=== PATIENT | male | born 1965 ===

== ENCOUNTER 2023-09-14 14:57 | Outpatient (AMB) | payer OTHER, SELFPAY ==
--- NOTE | 2023-09-14 15:03 | MHC.OFFVIS ---
Intake Vital Signs 09/14/23 15:04 Height 5 ft 9 in Weight 168 lb BMI 24.8 BP 120/60 Blood Pressure Location Rt brachial Position Sitting Pulse 74 Pulse Source Pulse Oximeter Pulse Oximetry (%) 98 Oxygen Delivery Method Room Air Intake Visit Reasons: Asthma Transportation Consultant Required: No Allergies No Known Allergies Allergy (Verified 09/14/23 15:07) HPI HPI Comments History of Present Illness Details The patient is here for pulmonary evaluation. The patient is a 50-year-old gentleman with a known history of asthma presents with worsening shortness breath and cough. The patient started developing some increased shortness of breath, [id number] severity. Previously he had been on Flovent but his Flovent was not available he no longer. He had been using his rescue inhaler about couple times a week. Because of the shortness of breath to follow-up with cardiology and he underwent a stress test and apparently was normal. Therefore will set up pulmonary. Patient has not had PFTs or chest x-ray. Explained to him that the recently has not been able to get the Flovent is because is off the market at this time. The patient does have evidence of symptoms least more than 2 times a week suggesting that is moderate persistent. The patient would benefit from a maintenance inhaler. Symbicort be a better combination inhaler for him. In addition to that significant allergies the patient had been seen by Allergy in the past. He did receive allergy shots for numerous years and did have some improvement with his allergies although not completely. He was told he has allergies to everything except for mold. The patient has been on antihistamine therapy but has not taking Singulair. Will start him on syncope this time with hopes that he has improvement with this steroid sparing agent. We also talked about using Symbicort as needed. This will be a very good option for him. In addition to that his monitoring closely his exposures. 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 The patient will have his PFTs chest x-ray will try the new respiratory therapy will follow-up in 3 months. [facility] Medical History (Updated 09/14/23 @ 22:59 by Yannick Lara MD) Allergies Chronic allergic rhinitis Asthma Social History Patient Tobacco Use Status: Never used Tobacco Review of Systems Const Denies fever(s) ENT Reports nasal congestion and Reports nasal discharge Card Denies chest pain and Reports dyspnea on exertion Resp Reports cough, Reports dyspnea on exertion and Denies wheezing GI Reports no additional complaints Musc Reports no additional complaints Skin/Breast Denies rash Aller/Immun Denies wheezing Physical Exam Vital Signs: Last Vital Signs Pulse 74 09/14/23 15:04 BP 120/60 09/14/23 15:04 Pulse Ox 98 09/14/23 15:04 Oxygen Delivery Method Room Air 09/14/23 15:04 BMI result Body Mass Index 24.8 Const General: comfortable Neck Neck: Yes supple Chest Chest palpation & inspection: normal inspection of the chest Resp Effort & Inspection: normal respiratory effort and prolonged expiratory phase Auscultation: diminished lung sounds Cardio Heart sounds: S1 normal heart sound present and S2 normal heart sound present GI Palpation (GI): Soft to palpation Skin General skin exam: no rashes or lesions noted Extrem General: Yes no clubbing, cyanosis or edema Assessment & Plan Assessment & Plan (1) Asthma: Code(s): J45.909 - Unspecified asthma, uncomplicated Qualifiers: Asthma severity: moderate Asthma persistence: persistent Asthma complication type: uncomplicated Qualified Code(s): J45.40 - Moderate persistent asthma, uncomplicated (2) Chronic allergic rhinitis: Code(s): J30.9 - Allergic rhinitis, unspecified (3) Allergies: Code(s): T78.40XA - Allergy, unspecified, initial encounter Qualifiers: Encounter type: initial encounter Qualified Code(s): T78.40XA - Allergy, unspecified, initial encounter Plan Start Singulair Start Symbicort JOSE as needed CXR PFTs Consider bloodwork/allergy retesting in the future F/U 2-3 months Orders: Orders PFT pulmonary function test Today J45.909 - Unspecified asthma, uncomplicated XR chest 2V Today J45.909 - Unspecified asthma, uncomplicated Medications: New budesonide-formoterol 160-4.5 mcg/actuation (Symbicort) 2 puffs inhalation BID 30 days 10.2 grams 11RF J44.89 - Other specified chronic obstructive pulmonary disease montelukast (Singulair) 10 mg PO BEDTIME 30 days 30 tabs 11RF J45.909 - Unspecified asthma, uncomplicated Coding Level of Care Code New Pt Level 4 (79871) Diagnoses Moderate persistent asthma without complication J45.40 Asthma severity: moderate Asthma persistence: persistent Asthma complication type: uncomplicated Chronic allergic rhinitis J30.9 Allergy, initial encounter T78.40XA Encounter type: initial encounter Time Spent (min) 36
[2023-09-14 15:04] VITALS: BP 120/60; PULSE 74; O2SAT 98; BMI 24.8
== END 2023-09-14 15:39 | disposition home or self-care (01) ==
PROVIDERS: PCP Internal Medicine; Referring Provider Internal Medicine; Visit Provider Hospitalist
DX: J45.40 Moderate persistent asthma, uncomplicated (principal); J30.9 Allergic rhinitis, unspecified; T78.40XA Allergy, unspecified, initial encounter
CPT/HCPCS: 99204

== ENCOUNTER → 2023-09-14 14:57 | Outpatient (BNVA) | payer OTHER, SELFPAY | PROVIDERS: PCP Internal Medicine; Referring Provider Internal Medicine; Visit Provider Hospitalist | DX: J45.40 Moderate persistent asthma, uncomplicated (principal); J30.9 Allergic rhinitis, unspecified; T78.40XD Allergy, unspecified, subsequent encounter | CPT/HCPCS: 99202 ==

== ENCOUNTER 2023-10-24 14:58 | Outpatient (REF) | payer OTHER, SELFPAY ==
[2023-10-24 08:38] VITALS: PULSE 108; RESP 16; O2SAT 99
--- NOTE | 2023-10-24 15:53 | PFT_ITS ---
Flows: FEV1: 94 % of predicted at 3.31 L FVC: 98 % of predicted at 4.43 L FEV1/FVC: 75 % Bronchodilator response: Absent Volumes: Total lung capacity: 90 % of predicted at 6.31 L Residual volume: 101 % of predicted at 2.11 L Slow vital capacity: 85 % of predicted at 4.20 L Expiratory reserve volume: 97 % of predicted at 1.25 L Diffusion capacity: Normal Impression: No obstructive or restrictive ventilatory defect. No bronchodilator response. Normal pulmonary function test. MTDD
== END 2023-10-24 14:59 | disposition home or self-care (01) ==
LOC: HO.RESP 14:58
PROVIDERS: PCP Internal Medicine; Visit Provider Hospitalist
DX: J45.909 Unspecified asthma, uncomplicated (principal)
CPT/HCPCS: 94010; 94640; 94727; 94729

== ENCOUNTER → 2023-10-24 15:53 | Outpatient (BNV) | payer OTHER, SELFPAY | PROVIDERS: PCP Internal Medicine; Visit Provider Internal Medicine Pulmonary Disease | DX: J45.909 Unspecified asthma, uncomplicated (principal) | CPT/HCPCS: 94060; 94727; 94729 ==

== ENCOUNTER 2024-01-22 15:52 | Outpatient (AMB) | payer OTHER, SELFPAY ==
[2024-01-22 15:55] VITALS: PULSE 86; O2SAT 97; BMI 24.8
--- NOTE | 2024-01-22 15:55 | MHC.OFFVIS ---
Vital Signs 01/22/24 15:55 Height 5 ft 9 in Weight 168 lb BMI 24.8 Pulse 86 Pulse Source Pulse Oximeter Pulse Oximetry (%) 97 Oxygen Delivery Method Room Air Intake Visit Reasons: asthma Chimney Builder Helper Required: No Allergies No Known Allergies Allergy (Verified 01/22/24 15:56) HPI Comments Details: The patient is a 59-year-old gentleman with a known history of asthma presents with worsening shortness breath and cough. The patient started developing some increased shortness of breath, [id number] severity. Previously he had been on Flovent but his Flovent was not available he no longer. He had been using his rescue inhaler about couple times a week. Because of the shortness of breath to follow-up with cardiology and he underwent a stress test and apparently was normal. Therefore will set up pulmonary. Patient has not had PFTs or chest x-ray. Explained to him that the recently has not been able to get the Flovent is because is off the market at this time. The patient does have evidence of symptoms least more than 2 times a week suggesting that is moderate persistent. The patient would benefit from a maintenance inhaler. Symbicort be a better combination inhaler for him. In addition to that significant allergies the patient had been seen by Allergy in the past. He did receive allergy shots for numerous years and did have some improvement with his allergies although not completely. He was told he has allergies to everything except for mold. The patient has been on antihistamine therapy but has not taking Singulair. Will start him on syncope this time with hopes that he has improvement with this steroid sparing agent. We also talked about using Symbicort as needed. This will be a very good option for him. In addition to that his monitoring closely his exposures. 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 The patient will have his PFTs chest x-ray will try the new respiratory therapy will follow-up in 3 months. 01/22/2024 the patient is here for pulmonary follow-up visit. Overall he is doing better. The Symbicort has been affecting beneficial. He has been noticing less congestion less wheezing which is reassuring. Although he did not want take the Singulair because he was concerned about adverse effects. He can hold off for now. The patient does have significant nasal congestion. Unfortunately, the only thing that helps him is Afrin. The patient is aware that he is to stay away from this because of the rebound nasal congestion. He is trying to minimize the use. I will send him Dymista to the pharmacy to see if this provides some relief. He does have significant allergies. In view of his asthma significant allergic rhinitis he may benefit from biologic therapy. The patient had been on allergy shots for couple times and he just could not tolerate them. Therefore, we will try to optimize his nasal therapy and respiratory therapy and if he has no better we can consider blood work in addition to allergy testing to consider biologics. He did have pulmonary function studies which were reassuring without any evidence of obstructive nor restrictive ventilatory defects. And he should go for chest x-ray to have a baseline. Feel follow-up in 6 months or sooner if he develops any worsening problems. [facility], [facility] Medical History (Updated 09/14/23 @ 22:59 by Yannick Lara MD) Allergies Chronic allergic rhinitis Asthma Social History Patient Tobacco Use Status: Never used Tobacco Review of Systems Const Denies fever(s) ENT Reports nasal congestion and Reports nasal discharge Card Denies chest pain and Reports dyspnea on exertion Resp Reports cough, Reports dyspnea on exertion and Denies wheezing GI Reports no additional complaints Musc Reports no additional complaints Skin/Breast Denies rash Aller/Immun Denies wheezing Physical Exam Vital Signs: Last Vital Signs Pulse 86 01/22/24 15:55 Pulse Ox 97 01/22/24 15:55 Oxygen Delivery Method Room Air 01/22/24 15:55 BMI result Body Mass Index 24.8 Const General: comfortable Neck Neck: Yes supple Chest Chest palpation & inspection: normal inspection of the chest Resp Effort & Inspection: normal respiratory effort Auscultation: no wheezes and diminished lung sounds Cardio Heart sounds: S1 normal heart sound present and S2 normal heart sound present GI Palpation (GI): Soft to palpation Skin General skin exam: no rashes or lesions noted Extrem General: Yes no clubbing, cyanosis or edema Assessment & Plan Assessment & Plan (1) Asthma: Code(s): J45.909 - Unspecified asthma, uncomplicated Category: Medical Qualifiers: Asthma complication type: uncomplicated Asthma persistence: persistent Asthma severity: moderate Qualified Code(s): J45.40 - Moderate persistent asthma, uncomplicated (2) Chronic allergic rhinitis: Code(s): J30.9 - Allergic rhinitis, unspecified Category: Medical (3) Allergies: Code(s): T78.40XA - Allergy, unspecified, initial encounter Category: Medical Qualifiers: Encounter type: initial encounter Qualified Code(s): T78.40XA - Allergy, unspecified, initial encounter Plan consider Singulair / monteluast continue Symbicort JOSE as needed CXR start dymista Avoid afrin sinus rinsing bloodwork/allergy retesting in the future F/U 6 months Medications: New azelastine-fluticasone 137-50 mcg/spray (Dymista) administer into each nostril 1 spray intranasal BID 23 grams 6RF Coding Level of Care Code Est Pt Level 4 (20895) Diagnoses Moderate persistent asthma without complication J45.40 Asthma complication type: uncomplicated Asthma persistence: persistent Asthma severity: moderate Chronic allergic rhinitis J30.9 Allergy, initial encounter T78.40XA Encounter type: initial encounter Time Spent (min) 17
== END 2024-01-22 16:13 | disposition home or self-care (01) ==
PROVIDERS: PCP Internal Medicine; Visit Provider Hospitalist
DX: J45.40 Moderate persistent asthma, uncomplicated (principal); J30.9 Allergic rhinitis, unspecified; T78.40XA Allergy, unspecified, initial encounter
CPT/HCPCS: 99214

== ENCOUNTER → 2024-01-22 15:52 | Outpatient (BNVA) | payer OTHER, SELFPAY | PROVIDERS: PCP Internal Medicine; Visit Provider Hospitalist | DX: J45.40 Moderate persistent asthma, uncomplicated (principal); J30.9 Allergic rhinitis, unspecified; T78.40XA Allergy, unspecified, initial encounter | CPT/HCPCS: 99212 ==